=== PATIENT | female | born 1945 | race Caucasian/White ===

== ENCOUNTER 2018-12-15 15:00 | Inpatient (IN) | payer MEDICARE ==
[2018-12-15] MEDS ORDERED: Pancrelipase DR 12000 1 CAP FS PRN (17:10)
[2018-12-15] MEDS ORDERED: Acetaminophen 325 MG TAB PER TUBE PRN (17:10)
[2018-12-15] MEDS ORDERED: Ondansetron ODT 4 MG TAB SL PRN (17:10)
[2018-12-15] MEDS ORDERED: Sodium Bicarbonate Tab 325 MG TAB PER TUBE PRN (17:10)
[2018-12-15] MEDS ORDERED: Megestrol Acetate 40 MG TAB PER TUBE SCH (21:00)
[2018-12-15] MEDS ORDERED: Mirtazapine 15 MG TAB PER TUBE SCH (21:00)
[2018-12-15] MEDS: Doxepin HCl 25 MG CAP PO SCH (21:02)
[2018-12-15] MEDS: Magnesium Oxide 400 MG TAB PO SCH (21:03)
[2018-12-15] MEDS: Megestrol Acetate 40 MG TAB PO SCH (21:03)
[2018-12-15] MEDS: guaiFENesin ER 600 MG TAB PO SCH (21:03)
[2018-12-15] MEDS: Multivitamin W/ Minerals 1 TAB PO SCH (21:04)
[2018-12-15] MEDS: Mirtazapine 15 MG TAB PO SCH (21:04)
--- NOTE | 2018-12-16 07:46 | HP ---
PRIMARY CARE PHYSICIAN: Dr. Chino at [facility]. GASTROENTEROLOGY: Dr. Greg Vaughan. ONCOLOGY: Loreta Fontaine. REASON FOR ADMISSION: [facility] Bed for skilled rehab. HISTORY OF THE PRESENT ILLNESS AND HOSPITAL COURSE: Ms. Pimentel was admitted to [facility] secondary to dysphagia on 12/07/2018. Associated symptoms include nausea, vomiting, failure to thrive. Initial evaluation showed white count of 2.6, hemoglobin of 11.4, and platelet of 190,000. BUN 16, creatinine 1.2. GFR 43, albumin 3.8. Prior to this admission, the patient just had an EGD at [facility] 2 weeks prior and had a Schatzki ring on EGD. The patient was seen by Dr. Vaughan for gastroenterology care. This time, an EGD was performed with an esophageal dilatation and the patient underwent percutaneous gastrostomy placement. She also had a barium swallow study for dysphagia. No aspiration nor penetration was seen, but the patient has soft tissue neck enhancing lesion on the right parotid gland that will need to be followed by ENT as an outpatient. The patient was also seen by Loreta Fontaine for oncology care. The patient was started on Jevity infusion since yesterday. The patient reports that she is also allowed to have regular diet per mouth as tolerated. The patient reports that she remains generally weak and can hardly walk. Her baseline functional status is that she was independent prior to this admission. She lives on her own and her daughter who lives nearby is actively involved in patient's care. When evaluated, the patient was resting comfortably in bed. She reports some generalized discomfort of the abdomen. She reports no nausea or vomiting prior to discharge. No other new issues reported. PAST MEDICAL HISTORY: Uncontrolled chronic GERD, Schatzki's ring seen on recent EGD studies in 11/2018, hyperlipidemia, iron deficiency anemia, depression. SURGICAL HISTORY: Appendectomy, hysterectomy. ALLERGIES: SULFA AND METOPROLOL. CURRENT MEDICATIONS: 1. Acetaminophen 650 mg per tube q.6 hours p.r.n. 2. Ascorbic acid 500 mg p.o. daily. 3. Dulcolax 10 mg p.o. daily p.r.n. 4. Cholecalciferol 1000 units p.o. daily. 5. Vitamin D 1000 mg p.o. daily. 6. Doxepin 25 mg p.o. at bedtime. 7. Ferrous gluconate 324 mg p.o. daily. 8. Fluoxetine 20 mg p.o. daily. 9. Magnesium oxide 400 mg p.o. b.i.d. 10. Megestrol acetate 400 mg per tube q.i.d. 11. Mirtazapine 15 mg per tube at bedtime. 12. Multivitamins with minerals one tablet p.o. b.i.d. 13. Ondansetron 4 mg per tube q.6 hours p.r.n. 14. Pancrelipase 1 cap per protocol p.r.n. for tube occlusion. 15. Pantoprazole 40 mg p.o. daily. 16. Sodium bicarbonate 650 mg p.o. daily. REVIEW OF SYSTEMS: GENERAL: Denies fever or chills. Reports fatigue and general weakness, loss of appetite, and weight loss. HEENT: Denies cold symptoms. She reports some blurred vision. No acute eye pain or sudden loss of vision. CARDIO: Denies chest pain, palpitations, dyspnea on exertion, paroxysmal nocturnal dyspnea, or leg swelling. RESPIRATORY: Denies shortness of breath, cough, chronic sputum, pain with breathing. GI: As per HPI. Denies rectal bleeding, melena, hematochezia, hematemesis. GENITOURINARY: No dysuria, hematuria, frequency, urgency, or incontinence. MUSCULOSKELETAL: Denies joint effusion, myalgia, arthralgia. NEURO: Denies focal numbness, focal paralysis, fainting, or seizures. PSYCH: Reports some anxiety, depression, and insomnia. No hallucinations. SKIN: No rashes. No lesions. Reports bruises from previous IV sites. PHYSICAL EXAMINATION: VITAL SIGNS: Blood pressure 118/56, temperature 99.3, pulse 94, respirations 20 , O2 sats 97% on room air. Weight 117 pounds and 9 ounces, height 5 feet 2 inches. GENERAL: The patient is awake, alert, and oriented x3. Comfortable on exam. Generally weak looking, frail looking, elderly, not in acute distress. HEENT: Normocephalic, atraumatic. PERRL. Intact EOM. Anicteric sclerae. Oral mucosa is moist. No oral lesions. NECK: Supple. No LAD. Flat JVD. No bruit. CHEST: Normal excursion. Clear to auscultation bilaterally. CARDIAC: RRR. Normal S1 and S2. No murmurs. ABDOMEN: Flat, soft, nondistended. Normoactive bowel sounds. PEG tube site in place. Dry. No signs of infection. Reports generalized direct tenderness on palpation. No rebound or guarding. Negative CVA tenderness bilaterally. EXTREMITIES: No edema. No cyanosis. NEUROLOGIC: Nonfocal. DTRs 2+. Gait unsteady. PSYCH: Appears calm with appropriate demeanor and affect. She is calm and she is cooperative. LATEST LABS/TESTS: On 12/15/2018; WBC 4.2, hemoglobin 8, hematocrit 24.1, platelets 122. Sodium 131, potassium 3.8, BUN 15, creatinine 0.66, estimated GFR 87, glucose 117, calcium 8.0, lactate dehydrogenase 200. ASSESSMENT: 1. Physical deconditioning. 2. General weakness. 3. Adult failure to thrive. 4. Dysphagia, status post PEG tube placement. 5. Chronic kidney disease, stage 3. 6. Abnormal weight loss secondary to nutritional deficiency. 7. Folate deficiency. 8. Hyponatremia. 9. Gastroesophageal reflux, chronic. 10. Anemia. 11. Depression and anxiety. 12. Schatzki's ring, s/p esophageal dilatation. 12. 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 PLAN: The patient is admitted to [facility] for skilled rehab. We will refer to PT, OT, and ST for evaluation and treatment. We will continue all current medications as per list. Routine electrolytes, renal function, and CBC monitoring during her stay on rehab. We will monitor the patient for any medical comorbidities that may interfere with rehab progress. GI prophylaxis with PPI, DVT prophylaxis with SCD. Further recommendations depending on the hospital course. CODE STATUS: The patient reports DNAR. States that she has a living will at home and her daughter knows about the DNR status. Estimated length of stay, 2 to 3 weeks. Job ID: [id number] [facility]
[2018-12-16] MEDS: guaiFENesin ER 600 MG TAB PO SCH ×2 (09:05→21:16)
[2018-12-16] MEDS: Megestrol Acetate 40 MG TAB PO SCH ×4 (09:05→21:16)
[2018-12-16] MEDS: Multivitamin W/ Minerals 1 TAB PO SCH ×2 (09:06→21:16)
[2018-12-16] MEDS: Ferrous Gluconate 324 MG TAB PO SCH (09:06)
[2018-12-16] MEDS: Cyanocobalamin (Vitamin B-12) 1,000 MCG TAB PO SCH (09:06)
[2018-12-16] MEDS: Acetaminophen 325 MG TAB PO PRN (09:06)
[2018-12-16] MEDS: Ascorbic Acid 500 mg Chewable Tablet PO SCH (09:06)
[2018-12-16] MEDS: FLUoxetine HCl 20 MG CAP PO SCH (09:06)
[2018-12-16] MEDS: Magnesium Oxide 400 MG TAB PO SCH ×2 (09:06→21:17)
[2018-12-16] MEDS: Mirtazapine 15 MG TAB PO SCH (21:16)
[2018-12-16] MEDS: Doxepin HCl 25 MG CAP PO SCH (21:16)
[2018-12-17] MEDS: Multivitamin W/ Minerals 1 TAB PO SCH ×2 (08:59→21:43)
[2018-12-17] MEDS: Ascorbic Acid 500 mg Chewable Tablet PO SCH (08:59)
[2018-12-17] MEDS: Cyanocobalamin (Vitamin B-12) 1,000 MCG TAB PO SCH (08:59)
[2018-12-17] MEDS: FLUoxetine HCl 20 MG CAP PO SCH (08:59)
[2018-12-17] MEDS: guaiFENesin ER 600 MG TAB PO SCH ×2 (09:00→21:42)
[2018-12-17] MEDS: Megestrol Acetate 40 MG TAB PO SCH ×4 (09:00→21:42)
[2018-12-17] MEDS: Ferrous Gluconate 324 MG TAB PO SCH (09:00)
[2018-12-17] MEDS: Magnesium Oxide 400 MG TAB PO SCH ×2 (09:00→21:42)
[2018-12-17] MEDS: Doxepin HCl 25 MG CAP PO SCH (21:42)
[2018-12-17] MEDS: Mirtazapine 15 MG TAB PO SCH (21:43)
[2018-12-18 05:58] LABS: Hemoglobin 7.5 g/dL (12.0-16.0); Mean Corpuscular HGB CONC 31.6 g/dL (32.0-36.0); Mean Corpuscular Hemoglobin 28.2 pg (27.0-31.0); Mean Corpuscular Volume 89.1 fL (78.0-98.0); Mean Platelet Volume 6.4 fL (7.4-10.4); Platelet Count 198 thou/uL (130-400); RBC Distribution Width 15.2 % (11.5-14.5); Red Blood Cell (RBC) Count 2.67 mill/uL (4.20-5.40)
[2018-12-18 06:42] LABS: Anion Gap 13 mmol/L (10-20); BUN (Urea Nitrogen) 12 mg/dL (9.8-20.1); Band 8 % (5-11); Calc. Creatinine Clearance 59 mL/min (70-130); Calcium 8.4 mg/dL (7.8-10.44); Carbon Dioxide 22 mmol/L (23-31); Chloride 106 mmol/L (98-107); Estimated GFR-MDRD 83; Glucose 170 mg/dL (83-110); Lymphocytes 46 % (21-51); MDiff Complete? YES; Monocytes 14 % (0-10); Neutrophil 32 % (42-75); Platelet Morphology Comment Appears Adequate; RBC Morphology Normal; Sodium 137 mmol/L (136-145)
[2018-12-18 06:43] LABS: Manual Diff?? YES
[2018-12-18] MEDS: Megestrol Acetate 40 MG TAB PO SCH ×4 (09:07→20:33)
[2018-12-18] MEDS: guaiFENesin ER 600 MG TAB PO SCH ×2 (09:07→20:33)
[2018-12-18] MEDS: FLUoxetine HCl 20 MG CAP PO SCH (09:07)
[2018-12-18] MEDS: Magnesium Oxide 400 MG TAB PO SCH ×2 (09:07→20:33)
[2018-12-18] MEDS: Multivitamin W/ Minerals 1 TAB PO SCH ×2 (09:07→20:33)
[2018-12-18] MEDS: Ferrous Gluconate 324 MG TAB PO SCH ×2 (09:07→20:33)
[2018-12-18] MEDS: Ascorbic Acid 500 mg Chewable Tablet PO SCH (09:07)
[2018-12-18] MEDS: Cyanocobalamin (Vitamin B-12) 1,000 MCG TAB PO SCH (09:07)
[2018-12-18] MEDS: Doxepin HCl 25 MG CAP PO SCH (20:33)
[2018-12-18] MEDS: Mirtazapine 15 MG TAB PO SCH (20:33)
[2018-12-19 07:04] LABS: Hemoglobin 7.5 g/dL (12.0-16.0)
[2018-12-19] MEDS: Ascorbic Acid 500 mg Chewable Tablet PO SCH (09:12)
[2018-12-19] MEDS: FLUoxetine HCl 20 MG CAP PO SCH (09:12)
[2018-12-19] MEDS: Multivitamin W/ Minerals 1 TAB PO SCH ×2 (09:12→20:37)
[2018-12-19] MEDS: Magnesium Oxide 400 MG TAB PO SCH ×2 (09:13→20:38)
[2018-12-19] MEDS: Ferrous Gluconate 324 MG TAB PO SCH ×2 (09:13→20:38)
[2018-12-19] MEDS: Cyanocobalamin (Vitamin B-12) 1,000 MCG TAB PO SCH (09:13)
[2018-12-19] MEDS: Megestrol Acetate 40 MG TAB PO SCH ×4 (09:13→20:37)
[2018-12-19] MEDS: guaiFENesin ER 600 MG TAB PO SCH ×2 (09:13→20:37)
[2018-12-19] MEDS: Mirtazapine 15 MG TAB PO SCH (20:37)
[2018-12-19] MEDS: Doxepin HCl 25 MG CAP PO SCH (20:37)
[2018-12-20 06:47] LABS: Hemoglobin 7.7 g/dL (12.0-16.0)
[2018-12-20] MEDS: Multivitamin W/ Minerals 1 TAB PO SCH ×2 (09:26→20:27)
[2018-12-20] MEDS: Acetaminophen 325 MG TAB PO PRN (09:26)
[2018-12-20] MEDS: Ferrous Gluconate 324 MG TAB PO SCH ×2 (09:26→20:27)
[2018-12-20] MEDS: guaiFENesin ER 600 MG TAB PO SCH ×2 (09:26→20:28)
[2018-12-20] MEDS: Cyanocobalamin (Vitamin B-12) 1,000 MCG TAB PO SCH (09:26)
[2018-12-20] MEDS: Megestrol Acetate 40 MG TAB PO SCH ×4 (09:27→20:27)
[2018-12-20] MEDS: FLUoxetine HCl 20 MG CAP PO SCH (09:27)
[2018-12-20] MEDS: Ascorbic Acid 500 mg Chewable Tablet PO SCH (09:27)
[2018-12-20] MEDS: Magnesium Oxide 400 MG TAB PO SCH ×2 (09:27→20:28)
[2018-12-20] MEDS: Doxepin HCl 25 MG CAP PO SCH (20:28)
[2018-12-20] MEDS: Mirtazapine 15 MG TAB PO SCH (20:28)
[2018-12-21] MEDS: Cyanocobalamin (Vitamin B-12) 1,000 MCG TAB PO SCH (09:34)
[2018-12-21] MEDS: Ferrous Gluconate 324 MG TAB PO SCH ×2 (09:34→20:34)
[2018-12-21] MEDS: Acetaminophen 325 MG TAB PO PRN ×2 (09:34→19:12)
[2018-12-21] MEDS: Multivitamin W/ Minerals 1 TAB PO SCH ×2 (09:34→20:34)
[2018-12-21] MEDS: Ascorbic Acid 500 mg Chewable Tablet PO SCH (09:34)
[2018-12-21] MEDS: guaiFENesin ER 600 MG TAB PO SCH ×2 (09:34→20:34)
[2018-12-21] MEDS: Megestrol Acetate 40 MG TAB PO SCH ×4 (09:34→20:34)
[2018-12-21] MEDS: FLUoxetine HCl 20 MG CAP PO SCH (09:34)
[2018-12-21] MEDS: Magnesium Oxide 400 MG TAB PO SCH ×2 (09:34→20:34)
[2018-12-21] MEDS: Mirtazapine 15 MG TAB PO SCH (20:34)
[2018-12-21] MEDS: Doxepin HCl 25 MG CAP PO SCH (20:34)
[2018-12-22] MEDS: FLUoxetine HCl 20 MG CAP PO SCH (09:39)
[2018-12-22] MEDS: guaiFENesin ER 600 MG TAB PO SCH ×2 (09:40→22:55)
[2018-12-22] MEDS: Ascorbic Acid 500 mg Chewable Tablet PO SCH (09:40)
[2018-12-22] MEDS: Multivitamin W/ Minerals 1 TAB PO SCH ×2 (09:40→22:54)
[2018-12-22] MEDS: Megestrol Acetate 40 MG TAB PO SCH ×4 (09:40→22:54)
[2018-12-22] MEDS: Cyanocobalamin (Vitamin B-12) 1,000 MCG TAB PO SCH (09:40)
[2018-12-22] MEDS: Ferrous Gluconate 324 MG TAB PO SCH ×2 (09:40→22:54)
[2018-12-22] MEDS: Magnesium Oxide 400 MG TAB PO SCH ×2 (09:40→22:54)
[2018-12-22] MEDS: Acetaminophen 325 MG TAB PO PRN (10:23)
[2018-12-22] MEDS: Bisacodyl 5 MG TAB PO PRN (14:45)
[2018-12-22] MEDS: Doxepin HCl 25 MG CAP PO SCH (22:54)
[2018-12-22] MEDS: Mirtazapine 15 MG TAB PO SCH (22:55)
[2018-12-23] MEDS: Multivitamin W/ Minerals 1 TAB PO SCH ×2 (08:26→21:29)
[2018-12-23] MEDS: Ferrous Gluconate 324 MG TAB PO SCH ×2 (08:26→21:30)
[2018-12-23] MEDS: Magnesium Oxide 400 MG TAB PO SCH ×2 (08:26→21:29)
[2018-12-23] MEDS: Ascorbic Acid 500 mg Chewable Tablet PO SCH (08:26)
[2018-12-23] MEDS: FLUoxetine HCl 20 MG CAP PO SCH (08:26)
[2018-12-23] MEDS: Megestrol Acetate 40 MG TAB PO SCH ×4 (08:26→21:30)
[2018-12-23] MEDS: Cyanocobalamin (Vitamin B-12) 1,000 MCG TAB PO SCH (08:26)
[2018-12-23] MEDS: guaiFENesin ER 600 MG TAB PO SCH ×2 (08:26→21:29)
[2018-12-23] MEDS: Doxepin HCl 25 MG CAP PO SCH (21:28)
[2018-12-23] MEDS: Mirtazapine 15 MG TAB PO SCH (21:30)
[2018-12-24] MEDS: Ferrous Gluconate 324 MG TAB PO SCH ×2 (09:50→20:12)
[2018-12-24] MEDS: Ascorbic Acid 500 mg Chewable Tablet PO SCH (09:50)
[2018-12-24] MEDS: guaiFENesin ER 600 MG TAB PO SCH ×2 (09:50→20:13)
[2018-12-24] MEDS: FLUoxetine HCl 20 MG CAP PO SCH (09:50)
[2018-12-24] MEDS: Magnesium Oxide 400 MG TAB PO SCH ×2 (09:50→20:12)
[2018-12-24] MEDS: Megestrol Acetate 40 MG TAB PO SCH ×4 (09:50→20:12)
[2018-12-24] MEDS: Multivitamin W/ Minerals 1 TAB PO SCH ×2 (09:51→20:12)
[2018-12-24] MEDS: Cyanocobalamin (Vitamin B-12) 1,000 MCG TAB PO SCH (09:51)
[2018-12-24] MEDS: Acetaminophen 325 MG TAB PO PRN ×2 (09:54→18:04)
[2018-12-24] MEDS: Mirtazapine 15 MG TAB PO SCH (20:13)
[2018-12-24] MEDS: Doxepin HCl 25 MG CAP PO SCH (20:13)
[2018-12-25 07:38] LABS: Hemoglobin 7.5 g/dL (12.0-16.0); Platelet Count 386 thou/uL (130-400)
[2018-12-25] MEDS: Ferrous Gluconate 324 MG TAB PO SCH ×2 (08:40→20:16)
[2018-12-25] MEDS: Ascorbic Acid 500 mg Chewable Tablet PO SCH (08:40)
[2018-12-25] MEDS: Multivitamin W/ Minerals 1 TAB PO SCH ×2 (08:40→20:16)
[2018-12-25] MEDS: FLUoxetine HCl 20 MG CAP PO SCH (08:40)
[2018-12-25] MEDS: Magnesium Oxide 400 MG TAB PO SCH ×2 (08:41→20:16)
[2018-12-25] MEDS: guaiFENesin ER 600 MG TAB PO SCH ×2 (08:41→20:17)
[2018-12-25] MEDS: Megestrol Acetate 40 MG TAB PO SCH ×4 (08:41→20:16)
[2018-12-25] MEDS: Cyanocobalamin (Vitamin B-12) 1,000 MCG TAB PO SCH (08:41)
[2018-12-25] MEDS: Mirtazapine 15 MG TAB PO SCH (20:16)
[2018-12-25] MEDS: Doxepin HCl 25 MG CAP PO SCH (20:16)
[2018-12-26] MEDS: Multivitamin W/ Minerals 1 TAB PO SCH ×2 (09:09→21:24)
[2018-12-26] MEDS: Ascorbic Acid 500 mg Chewable Tablet PO SCH (09:10)
[2018-12-26] MEDS: Cyanocobalamin (Vitamin B-12) 1,000 MCG TAB PO SCH (09:10)
[2018-12-26] MEDS: Megestrol Acetate 40 MG TAB PO SCH ×4 (09:10→21:24)
[2018-12-26] MEDS: Ferrous Gluconate 324 MG TAB PO SCH ×2 (09:10→21:24)
[2018-12-26] MEDS: FLUoxetine HCl 20 MG CAP PO SCH (09:10)
[2018-12-26] MEDS: guaiFENesin ER 600 MG TAB PO SCH ×2 (09:11→21:24)
[2018-12-26] MEDS: Magnesium Oxide 400 MG TAB PO SCH ×2 (09:11→21:24)
[2018-12-26] MEDS: Bisacodyl 5 MG TAB PO PRN (09:22)
[2018-12-26] MEDS: Acetaminophen 325 MG TAB PO PRN (10:48)
[2018-12-26] MEDS: Doxepin HCl 25 MG CAP PO SCH (21:23)
[2018-12-26] MEDS: Mirtazapine 15 MG TAB PO SCH (21:24)
[2018-12-27] MEDS: Multivitamin W/ Minerals 1 TAB PO SCH ×2 (08:28→21:33)
[2018-12-27] MEDS: Megestrol Acetate 40 MG TAB PO SCH ×4 (08:28→21:33)
[2018-12-27] MEDS: Magnesium Oxide 400 MG TAB PO SCH ×2 (08:29→21:33)
[2018-12-27] MEDS: Ascorbic Acid 500 mg Chewable Tablet PO SCH (08:29)
[2018-12-27] MEDS: guaiFENesin ER 600 MG TAB PO SCH ×2 (08:29→21:33)
[2018-12-27] MEDS: FLUoxetine HCl 20 MG CAP PO SCH (08:29)
[2018-12-27] MEDS: Cyanocobalamin (Vitamin B-12) 1,000 MCG TAB PO SCH (08:29)
[2018-12-27] MEDS: Ferrous Gluconate 324 MG TAB PO SCH ×2 (08:29→21:33)
[2018-12-27] MEDS: Acetaminophen 325 MG TAB PO PRN (16:45)
[2018-12-27] MEDS: Doxepin HCl 25 MG CAP PO SCH (21:33)
[2018-12-27] MEDS: Mirtazapine 15 MG TAB PO SCH (21:37)
[2018-12-28] MEDS: Ferrous Gluconate 324 MG TAB PO SCH ×2 (08:32→20:39)
[2018-12-28] MEDS: Multivitamin W/ Minerals 1 TAB PO SCH ×2 (08:32→20:40)
[2018-12-28] MEDS: Magnesium Oxide 400 MG TAB PO SCH ×2 (08:32→20:40)
[2018-12-28] MEDS: Cyanocobalamin (Vitamin B-12) 1,000 MCG TAB PO SCH (08:32)
[2018-12-28] MEDS: guaiFENesin ER 600 MG TAB PO SCH ×2 (08:32→20:40)
[2018-12-28] MEDS: Ascorbic Acid 500 mg Chewable Tablet PO SCH (08:32)
[2018-12-28] MEDS: Megestrol Acetate 40 MG TAB PO SCH ×4 (08:33→20:39)
[2018-12-28] MEDS: FLUoxetine HCl 20 MG CAP PO SCH (08:33)
[2018-12-28] MEDS: Mirtazapine 15 MG TAB PO SCH (20:40)
[2018-12-28] MEDS: Doxepin HCl 25 MG CAP PO SCH (20:40)
[2018-12-29] MEDS: Multivitamin W/ Minerals 1 TAB PO SCH ×2 (08:22→21:16)
[2018-12-29] MEDS: Ascorbic Acid 500 mg Chewable Tablet PO SCH (08:22)
[2018-12-29] MEDS: Megestrol Acetate 40 MG TAB PO SCH ×4 (08:22→21:16)
[2018-12-29] MEDS: Ferrous Gluconate 324 MG TAB PO SCH ×2 (08:22→21:16)
[2018-12-29] MEDS: FLUoxetine HCl 20 MG CAP PO SCH (08:22)
[2018-12-29] MEDS: guaiFENesin ER 600 MG TAB PO SCH ×2 (08:23→21:17)
[2018-12-29] MEDS: Magnesium Oxide 400 MG TAB PO SCH ×2 (08:23→21:17)
[2018-12-29] MEDS: Cyanocobalamin (Vitamin B-12) 1,000 MCG TAB PO SCH (08:23)
[2018-12-29] MEDS: Bisacodyl 5 MG TAB PO PRN (08:23)
[2018-12-29] MEDS: Doxepin HCl 25 MG CAP PO SCH (21:16)
[2018-12-29] MEDS: Mirtazapine 15 MG TAB PO SCH (21:16)
[2018-12-29] MEDS ORDERED: Bisacodyl 10 MG SUPP PR PRN (22:59)
[2018-12-29] MEDS ORDERED: Fleet Enema 133 ML BOT FS PRN (22:59)
[2018-12-30] MEDS: Ascorbic Acid 500 mg Chewable Tablet PO SCH (08:52)
[2018-12-30] MEDS: FLUoxetine HCl 20 MG CAP PO SCH (08:54)
[2018-12-30] MEDS: guaiFENesin ER 600 MG TAB PO SCH (08:54)
[2018-12-30] MEDS: Magnesium Oxide 400 MG TAB PO SCH ×2 (08:54→21:03)
[2018-12-30] MEDS: Ferrous Gluconate 324 MG TAB PO SCH ×2 (08:54→21:03)
[2018-12-30] MEDS: Cyanocobalamin (Vitamin B-12) 1,000 MCG TAB PO SCH (08:54)
[2018-12-30] MEDS: Multivitamin W/ Minerals 1 TAB PO SCH ×2 (08:55→21:03)
[2018-12-30] MEDS: Megestrol Acetate 40 MG TAB PO SCH ×4 (08:55→21:03)
[2018-12-30] MEDS: Acetaminophen 325 MG TAB PO PRN ×2 (11:21→21:02)
[2018-12-30] MEDS ORDERED: Polyethylene Glycol 3350 17 GM Packet PER TUBE SCH (21:00)
[2018-12-30] MEDS: Mirtazapine 15 MG TAB PO SCH (21:02)
[2018-12-30] MEDS: Doxepin HCl 25 MG CAP PO SCH (21:02)
[2018-12-31] MEDS: Cyanocobalamin (Vitamin B-12) 1,000 MCG TAB PO SCH (09:04)
[2018-12-31] MEDS: Magnesium Oxide 400 MG TAB PO SCH ×2 (09:04→20:07)
[2018-12-31] MEDS: Megestrol Acetate 40 MG TAB PO SCH ×4 (09:04→20:07)
[2018-12-31] MEDS: Ferrous Gluconate 324 MG TAB PO SCH ×2 (09:04→20:07)
[2018-12-31] MEDS: FLUoxetine HCl 20 MG CAP PO SCH (09:04)
[2018-12-31] MEDS: Ascorbic Acid 500 mg Chewable Tablet PO SCH (09:04)
[2018-12-31] MEDS: Multivitamin W/ Minerals 1 TAB PO SCH ×2 (09:04→20:07)
[2018-12-31 13:44] VITALS: BMI 23.7
[2018-12-31] MEDS: Doxepin HCl 25 MG CAP PO SCH (20:07)
[2018-12-31] MEDS: Polyethylene Glycol 3350 17 GM Packet PO SCH (20:07)
[2018-12-31] MEDS: Mirtazapine 15 MG TAB PO SCH (20:07)
[2019-01-01 05:40] LABS: #Basophils 0.1 thou/uL (0.0-0.2); #Eosinphils 0.3 thou/uL (0.0-0.7); #Lymphocytes 1.9 thou/uL (1.20-3.40); #Monocytes 0.8 thou/uL (0.11-0.59); %Basophils 1.3 % (0.0-1.0); %Eosinophils 5.1 % (0.0-10.0); %Lymphocytes 31.1 % (21.0-51.0); %Neutrophils 49.6 % (42.0-75.0); Hemoglobin 8.2 g/dL (12.0-16.0); Mean Corpuscular Hemoglobin 30.1 pg (27.0-31.0); Mean Corpuscular Volume 91.3 fL (78.0-98.0); Mean Platelet Volume 6.1 fL (7.4-10.4); Platelet Count 330 thou/uL (130-400); RBC Distribution Width 18.7 % (11.5-14.5); Red Blood Cell (RBC) Count 2.71 mill/uL (4.20-5.40); White Blood Cell (WBC) Count 6.1 thou/uL (4.8-10.8)
[2019-01-01 05:54] LABS: Anisocytosis SLIGHT = 6-15 cells (100X) (0-5/hpf); Eosinophils 3 % (0-10); Lymphocytes 41 % (21-51); MDiff Complete? YES; Monocytes 14 % (0-10); Neutrophil 42 % (42-75); Platelet Morphology Comment Appears Adequate
[2019-01-01] MEDS: Megestrol Acetate 40 MG TAB PO SCH ×4 (07:56→19:59)
[2019-01-01] MEDS: Magnesium Oxide 400 MG TAB PO SCH ×2 (07:56→19:59)
[2019-01-01] MEDS: FLUoxetine HCl 20 MG CAP PO SCH (07:56)
[2019-01-01] MEDS: Cyanocobalamin (Vitamin B-12) 1,000 MCG TAB PO SCH (07:56)
[2019-01-01] MEDS: Multivitamin W/ Minerals 1 TAB PO SCH ×2 (07:56→19:59)
[2019-01-01] MEDS: Ferrous Gluconate 324 MG TAB PO SCH ×2 (07:57→19:59)
[2019-01-01] MEDS: Ascorbic Acid 500 mg Chewable Tablet PO SCH (07:57)
[2019-01-01] MEDS: Proctozone-HC 2.5% Cream 30 GM TUBE TOP PRN (08:05)
[2019-01-01] MEDS: Doxepin HCl 25 MG CAP PO SCH (19:59)
[2019-01-01] MEDS: Polyethylene Glycol 3350 17 GM Packet PO SCH (19:59)
[2019-01-01] MEDS: Mirtazapine 15 MG TAB PO SCH (19:59)
[2019-01-02] MEDS: Megestrol Acetate 40 MG TAB PO SCH ×4 (08:54→19:59)
[2019-01-02] MEDS: Ferrous Gluconate 324 MG TAB PO SCH ×2 (08:54→19:59)
[2019-01-02] MEDS: Multivitamin W/ Minerals 1 TAB PO SCH ×2 (08:55→19:59)
[2019-01-02] MEDS: Cyanocobalamin (Vitamin B-12) 1,000 MCG TAB PO SCH (08:55)
[2019-01-02] MEDS: Ascorbic Acid 500 mg Chewable Tablet PO SCH (08:55)
[2019-01-02] MEDS: Magnesium Oxide 400 MG TAB PO SCH ×2 (08:55→19:59)
[2019-01-02] MEDS: FLUoxetine HCl 20 MG CAP PO SCH (08:55)
[2019-01-02] MEDS: Proctozone-HC 2.5% Cream 30 GM TUBE TOP PRN (19:54)
[2019-01-02] MEDS: Polyethylene Glycol 3350 17 GM Packet PO SCH (19:59)
[2019-01-02] MEDS: Doxepin HCl 25 MG CAP PO SCH (19:59)
[2019-01-02] MEDS: Mirtazapine 15 MG TAB PO SCH (19:59)
[2019-01-03] MEDS: Ascorbic Acid 500 mg Chewable Tablet PO SCH (08:45)
[2019-01-03] MEDS: FLUoxetine HCl 20 MG CAP PO SCH (08:45)
[2019-01-03] MEDS: Multivitamin W/ Minerals 1 TAB PO SCH ×2 (08:45→21:10)
[2019-01-03] MEDS: Megestrol Acetate 40 MG TAB PO SCH ×4 (08:46→21:10)
[2019-01-03] MEDS: Ferrous Gluconate 324 MG TAB PO SCH ×2 (08:46→21:09)
[2019-01-03] MEDS: Magnesium Oxide 400 MG TAB PO SCH ×2 (08:46→21:10)
[2019-01-03] MEDS: Cyanocobalamin (Vitamin B-12) 1,000 MCG TAB PO SCH (08:46)
[2019-01-03] MEDS: Doxepin HCl 25 MG CAP PO SCH (21:09)
[2019-01-03] MEDS: Polyethylene Glycol 3350 17 GM Packet PO SCH (21:10)
[2019-01-03] MEDS: Mirtazapine 15 MG TAB PO SCH (21:10)
[2019-01-04] MEDS: FLUoxetine HCl 20 MG CAP PO SCH (08:54)
[2019-01-04] MEDS: Cyanocobalamin (Vitamin B-12) 1,000 MCG TAB PO SCH (08:54)
[2019-01-04] MEDS: Multivitamin W/ Minerals 1 TAB PO SCH ×2 (08:54→21:09)
[2019-01-04] MEDS: Ferrous Gluconate 324 MG TAB PO SCH ×2 (08:54→21:09)
[2019-01-04] MEDS: Magnesium Oxide 400 MG TAB PO SCH ×2 (08:54→21:10)
[2019-01-04] MEDS: Ascorbic Acid 500 mg Chewable Tablet PO SCH (08:54)
[2019-01-04] MEDS: Megestrol Acetate 40 MG TAB PO SCH ×4 (08:54→21:10)
[2019-01-04] MEDS: Doxepin HCl 25 MG CAP PO SCH (21:09)
[2019-01-04] MEDS: Mirtazapine 15 MG TAB PO SCH (21:10)
[2019-01-04] MEDS: Polyethylene Glycol 3350 17 GM Packet PO SCH (21:11)
[2019-01-05] MEDS: Ascorbic Acid 500 mg Chewable Tablet PO SCH (09:57)
[2019-01-05] MEDS: Ferrous Gluconate 324 MG TAB PO SCH ×2 (09:57→20:49)
[2019-01-05] MEDS: Magnesium Oxide 400 MG TAB PO SCH ×2 (09:57→20:50)
[2019-01-05] MEDS: FLUoxetine HCl 20 MG CAP PO SCH (09:57)
[2019-01-05] MEDS: Multivitamin W/ Minerals 1 TAB PO SCH ×2 (09:57→20:49)
[2019-01-05] MEDS: Megestrol Acetate 40 MG TAB PO SCH ×4 (09:58→20:49)
[2019-01-05] MEDS: Cyanocobalamin (Vitamin B-12) 1,000 MCG TAB PO SCH (09:58)
[2019-01-05] MEDS: Doxepin HCl 25 MG CAP PO SCH (20:49)
[2019-01-05] MEDS: Polyethylene Glycol 3350 17 GM Packet PO SCH (20:50)
[2019-01-05] MEDS: Mirtazapine 15 MG TAB PO SCH (20:50)
[2019-01-06] MEDS: Ferrous Gluconate 324 MG TAB PO SCH ×2 (08:36→20:02)
[2019-01-06] MEDS: Magnesium Oxide 400 MG TAB PO SCH ×2 (08:37→20:02)
[2019-01-06] MEDS: Megestrol Acetate 40 MG TAB PO SCH ×4 (08:37→20:03)
[2019-01-06] MEDS: Ascorbic Acid 500 mg Chewable Tablet PO SCH (08:37)
[2019-01-06] MEDS: Multivitamin W/ Minerals 1 TAB PO SCH ×2 (08:37→20:02)
[2019-01-06] MEDS: Cyanocobalamin (Vitamin B-12) 1,000 MCG TAB PO SCH (08:37)
[2019-01-06] MEDS: FLUoxetine HCl 20 MG CAP PO SCH (08:37)
[2019-01-06] MEDS: Mirtazapine 15 MG TAB PO SCH (20:02)
[2019-01-06] MEDS: Polyethylene Glycol 3350 17 GM Packet PO SCH (20:02)
[2019-01-06] MEDS: Doxepin HCl 25 MG CAP PO SCH (20:02)
[2019-01-07] MEDS: FLUoxetine HCl 20 MG CAP PO SCH (08:23)
[2019-01-07] MEDS: Cyanocobalamin (Vitamin B-12) 1,000 MCG TAB PO SCH (08:24)
[2019-01-07] MEDS: Magnesium Oxide 400 MG TAB PO SCH ×2 (08:24→20:18)
[2019-01-07] MEDS: Ferrous Gluconate 324 MG TAB PO SCH ×2 (08:24→20:18)
[2019-01-07] MEDS: Ascorbic Acid 500 mg Chewable Tablet PO SCH (08:24)
[2019-01-07] MEDS: Megestrol Acetate 40 MG TAB PO SCH ×4 (08:24→20:18)
[2019-01-07] MEDS: Multivitamin W/ Minerals 1 TAB PO SCH ×2 (08:24→20:18)
[2019-01-07] MEDS: Acetaminophen 325 MG TAB PO PRN (15:53)
[2019-01-07] MEDS: Polyethylene Glycol 3350 17 GM Packet PO SCH (20:18)
[2019-01-07] MEDS: Doxepin HCl 25 MG CAP PO SCH (20:18)
[2019-01-07] MEDS: Mirtazapine 15 MG TAB PO SCH (20:18)
[2019-01-08 08:36] VITALS: BP 137/64; TEMP 99.4
[2019-01-08] MEDS: Magnesium Oxide 400 MG TAB PO SCH (08:40)
[2019-01-08] MEDS: Ascorbic Acid 500 mg Chewable Tablet PO SCH (08:40)
[2019-01-08] MEDS: Cyanocobalamin (Vitamin B-12) 1,000 MCG TAB PO SCH (08:40)
[2019-01-08] MEDS: Multivitamin W/ Minerals 1 TAB PO SCH (08:40)
[2019-01-08] MEDS: Ferrous Gluconate 324 MG TAB PO SCH (08:40)
[2019-01-08] MEDS: Megestrol Acetate 40 MG TAB PO SCH (08:40)
[2019-01-08] MEDS: FLUoxetine HCl 20 MG CAP PO SCH (08:40)
--- NOTE | 2019-01-10 02:00 | DIS ---
DATE OF ADMISSION: 12/15/2018 DATE OF DISCHARGE: 01/08/2019 PRIMARY CARE PHYSICIAN: Dr. Chino from [facility]. GASTROENTEROLOGY: Greg Vaughan MD ONCOLOGIST: Loreta Fontaine NP REASON FOR ADMISSION: Transferred to [facility] for skilled rehab after recent hospitalization. FINAL DIAGNOSES: 1. Physical deconditioning secondary to general weakness. 2. Adult failure to thrive. 3. Anemia, acute on chronic. 4. Dysphagia status post PEG tube placement. 5. Chronic kidney disease stage 3. 6. Abnormal weight loss secondary to nutritional deficiencies/malnutrition, improved. 7. Folate deficiency. 8. Hyponatremia. 9. Chronic gastroesophageal reflux. 10. Depression, anxiety. 11. Schatzki ring, status post esophageal dilatation. 12. 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 13. Abnormality of gait secondary to impairment of balance. DISPOSITION: Home with daughter. CONDITION ON DISCHARGE: Stable. DISCHARGE MEDICATIONS: 1. Ferrous sulfate 325 mg p.o. b.i.d. 2. Bisacodyl 10 mg p.o. daily p.r.n. 3. Doxepin 25 mg p.o. at bedtime. 4. Fluoxetine 20 mg p.o. daily. 5. Magnesium oxide 400 mg p.o. b.i.d. 6. Mirtazapine 15 mg p.o. at bedtime. 7. Omeprazole 40 mg p.o. daily. 8. Pancrelipase DR are 12,000 one cap daily. 9. Polyethylene glycol 17 g p.o. at bedtime. FOLLOWUP INSTRUCTIONS: 1. Follow up with PCP in 1 week, sooner with concern. 2. Follow up with GI Dr. Vaughan in 2-3 weeks. 3. Diet, regular as tolerated. 4. Activity, to use rolling walker at all times. 5. Fall precautions. CODE STATUS: Do not resuscitate. HISTORY OF PRESENT ILLNESS AND HOSPITAL COURSE: Ms. Pimentel is a very pleasant 73-year-old female, was initially admitted to [facility] secondary to dysphagia. She was admitted on 12/07/2018 with associated symptoms of nausea, vomiting, and failure to thrive. The patient reports that she has been having difficulty of swallowing and inability to eat. She had significantly lost weight in a gradual manner. Her baseline weight has been in the 160s prior to this. The patient underwent EGD and esophageal dilatation for Schatzki ring 2 weeks prior to this admission. The patient reports no significant improvement of her overall oral intake despite of the procedures. The patient then underwent percutaneous gastrostomy placement during this admission. She also had a barium swallow study of dysphagia. There was no aspiration or penetration that was seen, but the patient has a soft tissue neck enhancing lesion on the right parotid gland that will need to be followed by the ENT as an outpatient. The patient was also seen by Loreta Fontaine for oncology care during her recent hospitalization. She was then started on Jevity infusion post PEG tube placement. The patient was also allowed to have regular diet orally as tolerated per GI recommendations. The patient reports that she remains generally weak and could hardly walk thus she was transferred to [facility] on 12/15/2018 for skilled rehab. The patient made a marked improvement with her overall functional mobility and status during her rehab. She was walking 400 feet using her rolling walker prior to discharge. She remains low with her vick and she has a flexed posture. Per Therapy, the patient demonstrated safe and independent mobility, dressing, and transfers of gait prior to discharge. The patient was likewise made a significant improvement with her overall nutritional status and eating. Her appetite tremendously increased and she tolerated oral intake without issues. Her PEG tube feeding was weaned off and eventually discontinued secondary to marked improvement of the overall oral intake. The patient made a gradual improvement with weight from 117 pounds upon admission in skilled rehab to 133 pounds prior to discharge. During this rehab stay, the patient's daughter requested for psych evaluation secondary to depression noted. evaluated the patient and was told not recommendable to attend psych counseling secondary to impaired memory. The patient was noted to have short term memory. She was then recommended to continue medical therapy with SNRI. The patient is recommended to follow up with primary physician at [facility] for further adjustments of her current medications that were started from her recent hospitalization. She is also recommended to have a repeat CBC as outpatient. Labs on 12/18/2018, hemoglobin 7.5, hematocrit 23.8, WBC of 3, platelets 198. On 01/01/2019, WBC 6.1, hemoglobin 8.2, hematocrit 24.7, platelets 330. On 12/18/2018, sodium 137, potassium 4.0, chloride 106, BUN 12, creatinine , estimated GFR 83, glucose 170, calcium 8.4. VITAL SIGNS: Prior to discharge: Blood pressure 137/64, temp 99.4, pulse 72, respirations 18, O2 saturation 100% on room air. Weight 133 pounds, height 5 feet 2 inches. TIME SPENT: Time spent on this discharge, 35 minutes, in examining the patient, counseling and coordinating care. Job ID: [id number]
== END 2019-01-08 09:10 | disposition home or self-care (01) | DRG 948 ==
LOC: MADMS 15:00 → UNDOADMIN 15:00
PROVIDERS: ADMIT Family Medicine; ATTEND Family Medicine
DX: R53.1 Weakness (principal); E87.1 Hypo-osmolality and hyponatremia; K21.9 Gastro-esophageal reflux disease without esophagitis; E78.5 Hyperlipidemia, unspecified; F32.9 Major depressive disorder, single episode, unspecified; N18.3 Chronic kidney disease, stage 3 (moderate); I12.9 Hypertensive chronic kidney disease with stage 1 through stage 4 chronic kidney disease, or unspecified chronic kidney disease; R53.81 Other malaise; R62.7 Adult failure to thrive; E53.8 Deficiency of other specified B group vitamins; F41.9 Anxiety disorder, unspecified; K11.8 Other diseases of salivary glands; R13.10 Dysphagia, unspecified; Z90.49 Acquired absence of other specified parts of digestive tract; Z90.710 Acquired absence of both cervix and uterus; Z88.2 Allergy status to sulfonamides; Z88.8 Allergy status to other drugs, medicaments and biological substances; Z79.899 Other long term (current) drug therapy; Z68.24 Body mass index [BMI] 24.0-24.9, adult
CPT/HCPCS: 80048; 85014; 85018; 85025; 85049; S0179

== ENCOUNTER 2019-04-17 17:48 | Emergency (ER) | payer MEDICARE | END 2019-04-17 18:20 | disposition home or self-care (01) | LOC: MADERS 17:48 | DX: Z48.01 Encounter for change or removal of surgical wound dressing (principal) | CPT/HCPCS: 99283 ==

== ENCOUNTER 2023-11-02 09:27 | Inpatient (IN) | payer MEDICARE ==
[2023-11-02 10:58] LABS: Bilirubin Negative (Negative); Blood, Urine Trace (Negative); Glucose, Urine (Dipstick) Negative (Negative); Ketone, Urine Negative (Negative); Leukocyte Large (Negative); Nitrite Positive (Negative); Protein, Urine (Dipstick) Negative (Neg-Trace); Urobilinogen 0.2 mg/dL (Less than 2); pH, Urine 5.5 (5.0-9.0)
[2023-11-02 11:07] LABS: Clarity Hazy (Clear)
[2023-11-02 11:08] LABS: Bacteria/HPF 2+ HPF (None Seen); CAUTI Indications for Culture Alt mental st,lethar; RBC/HPF 0-3 HPF (0-3); Squamous Epithelial 0-3 HPF (0-3)
[2023-11-02 11:09] LABS: Urine Culture Reflex Yes Yes
[2023-11-02 11:12] LABS: #Basophils 0.2 thou/uL (0.0-0.2); #Eosinphils 0.2 thou/uL (0.0-0.7); #Lymphocytes 2.2 thou/uL (1.20-3.40); #Monocytes 0.6 thou/uL (0.11-0.59); #Neutrophils 4.9 thou/uL (1.40-6.50); %Basophils 2.1 % (0.0-1.0); %Eosinophils 2.9 % (0.0-10.0); %Lymphocytes 27.1 % (21.0-51.0); %Monocytes 7.6 % (0.0-10.0); %Neutrophils 60.3 % (42.0-75.0); Hematocrit 47.4 % (36.0-47.0); Hemoglobin 14.7 g/dL (12.0-16.0); Mean Corpuscular HGB CONC 30.9 g/dL (32.0-36.0); Mean Corpuscular Hemoglobin 27.5 pg (27.0-31.0); Platelet Count 225 10x3/uL (130-400); RBC Distribution Width 12.1 % (11.5-14.5); Red Blood Cell (RBC) Count 5.33 mill/uL (4.20-5.40); White Blood Cell (WBC) Count 8.1 10x3/uL (4.8-10.8)
[2023-11-02 11:14] LABS: ALT (SGPT) 13 U/L (8-55); AST (SGOT) 18 U/L (5-34); Albumin 4.8 g/dL (3.4-4.8); Alkaline Phosphatase 84 U/L (40-110); Anion Gap 17 mmol/L (10-20); BUN (Urea Nitrogen) 13 mg/dL (9.8-20.1); Bilirubin, Total 0.5 mg/dL (0.2-1.2); CK (CPK) 64 U/L (29-168); Calc. Creatinine Clearance 0 mL/min (70-130); Calcium 9.6 mg/dL (7.8-10.44); Carbon Dioxide 21 mmol/L (23-31); Chloride 105 mmol/L (98-107); Estimated GFR 78; Globulin 2.7 g/dL (2.4-3.5); Glucose 96 mg/dL (83-110); Lipase 20 U/L (8-78); Magnesium 1.9 mg/dL (1.6-2.6); Potassium 4.1 mmol/L (3.5-5.1); Protein, Total 7.5 g/dL (5.8-8.1); Sodium 139 mmol/L (136-145)
[2023-11-02 11:15] LABS: Troponin I Less than 0.010 ng/mL (< 0.028)
[2023-11-02] MEDS: Sodium Chloride 0.9% 1,000 ML IV SCH (14:43)
[2023-11-02] MEDS: cefTRIAXone (ROCEPHIN) 2 GM VIAL ONE (14:44)
[2023-11-02] MEDS: Sodium Chloride 0.9% 1,000 ML ONE (14:45)
[2023-11-02] MEDS: Sodium Chloride 0.9% 100 ML ONE (14:45)
[2023-11-02] MEDS ORDERED: Bisacodyl 5 MG TAB PO PRN (14:51)
[2023-11-02 15:29] VITALS: BMI 24.3
[2023-11-02] MEDS: Acetaminophen 325 MG TAB PO PRN (16:38)
[2023-11-02] MEDS: Latanoprost 0.005% Ophth Soln 2.5 ml Bottle EA EYE SCH (20:56)
[2023-11-02] MEDS: Mirtazapine 15 MG TAB PO SCH (20:57)
[2023-11-02] MEDS: Meloxicam 7.5 MG TAB PO SCH (20:57)
[2023-11-03] MEDS: Saccharomyces boulardii 250 MG CAP PO SCH (08:34)
[2023-11-03 09:21] VITALS: BMI 24.3
[2023-11-03] MEDS: cefTRIAXone\\ROCEPHIN 2 GM in Sodium Chloride 0.9% 100 ML IVPB SCH (11:11)
[2023-11-03] MEDS: Senokot S 8.6-50 MG TAB PO PRN (13:40)
[2023-11-04] MEDS: Pantoprazole DR 40 MG TAB PO SCH (08:15)
[2023-11-04] MEDS: Enoxaparin 40 MG (0.4 mL) SYRINGE SC SCH (08:17)
[2023-11-05 07:14] VITALS: BP 174/74; TEMP 97.6
[2023-11-05] MEDS: Acetaminophen 500 MG TAB PO SCH (08:04)
[2023-11-05] MEDS: Amlodipine 5 MG TAB PO SCH (08:05)
[2023-11-05] MEDS ORDERED: Diclofenac 1% 50 GM TOPICAL GEL TP SCH (09:00)
== END 2023-11-05 11:36 | disposition swing bed (61) | DRG 690 ==
LOC: MADERS 09:27 → MADMS 13:51
PROVIDERS: ADMIT Family Medicine; ATTEND Family Medicine
DX: N39.0 Urinary tract infection, site not specified (principal); M25.562 Pain in left knee; K21.9 Gastro-esophageal reflux disease without esophagitis; E78.5 Hyperlipidemia, unspecified; D50.9 Iron deficiency anemia, unspecified; F32.A Depression, unspecified; Z66 Do not resuscitate; R53.81 Other malaise; R63.0 Anorexia; Z68.24 Body mass index [BMI] 24.0-24.9, adult; Z88.2 Allergy status to sulfonamides; Z88.8 Allergy status to other drugs, medicaments and biological substances; Z79.899 Other long term (current) drug therapy; Z90.89 Acquired absence of other organs; Z90.710 Acquired absence of both cervix and uterus; Z90.49 Acquired absence of other specified parts of digestive tract; Z85.818 Personal history of malignant neoplasm of other sites of lip, oral cavity, and pharynx
CPT/HCPCS: 70450; 80053; 81001; 82550; 83690; 83735; 83880; 84484; 85025; 87077; 87086; 87186; 93005; 96361; 96365; J0696; J1650; J3490; J7050

== ENCOUNTER 2025-01-11 18:03 | Emergency (ER) | payer MEDICARE ==
[2025-01-11 18:56] LABS: #Basophils 0.1 thou/uL (0.0-0.2); #Eosinophils 0.2 thou/uL (0.0-0.7); #Lymphocytes 2.0 thou/uL (1.20-3.40); #Monocytes 0.4 thou/uL (0.11-0.59); #Neutrophils 3.5 thou/uL (1.40-6.50); %Basophils 2.3 % (0.0-1.0); %Eosinophils 2.6 % (0.0-10.0); %Lymphocytes 32.8 % (21.0-51.0); %Monocytes 6.7 % (0.0-10.0); %Neutrophils 55.6 % (42.0-75.0); Hematocrit 42.1 % (36.0-47.0); Hemoglobin 13.9 g/dL (12.0-16.0); Mean Corpuscular Hemoglobin 30.0 pg (27.0-31.0); Mean Corpuscular Volume 91.0 fl (78.0-98.0); Platelet Count 275 10x3/uL (130-400); Red Blood Cell (RBC) Count 4.63 mill/uL (4.20-5.40); White Blood Cell (WBC) Count 6.2 10x3/uL (4.8-10.8)
[2025-01-11 19:01] LABS: Glucose, Urine (Dipstick) Negative (Negative); Leukocyte Moderate (Negative); Protein, Urine (Dipstick) Negative (Neg-Trace); Specific Gravity, Urine 1.015 (1.005-1.030)
[2025-01-11 19:06] LABS: RBC/HPF 0-3 HPF (0-3)
[2025-01-11 19:07] LABS: Bacteria/HPF 1+ HPF (None Seen); CAUTI Indications for Culture Alt mental st,lethar; WBC/HPF Greater than 50 HPF (0-3)
[2025-01-11 19:08] LABS: Urine Culture Reflex Yes Yes
[2025-01-11 19:10] LABS: Anion Gap 21 mmol/L (10-20); BUN (Urea Nitrogen) 12 mg/dL (9.8-20.1); Calc. Creatinine Clearance 0 mL/min (70-130); Carbon Dioxide 17 mmol/L (23-31); Chloride 103 mmol/L (98-107); Potassium 5.0 mmol/L (3.5-5.1); Sodium 136 mmol/L (136-145)
[2025-01-11 19:11] LABS: ALT (SGPT) 15 U/L (Less than 34); AST (SGOT) 22 U/L (11-34); Albumin 4.6 g/dL (3.1-4.5); Alkaline Phosphatase 105 U/L (40-110); Bilirubin, Total 0.3 mg/dL (0.3-1.2); Calcium 9.5 mg/dL (7.8-10.44); Globulin 3.3 g/dL (2.4-3.5); Glucose 132 mg/dL (83-110); Magnesium 1.6 mg/dL (1.6-2.6)
== END 2025-01-11 19:47 | disposition home or self-care (01) ==
LOC: MADERS 18:03
DX: N39.0 Urinary tract infection, site not specified (principal); R41.0 Disorientation, unspecified; E87.20 Acidosis, unspecified; K21.9 Gastro-esophageal reflux disease without esophagitis; I10 Essential (primary) hypertension; F03.90 Unspecified dementia, unspecified severity, without behavioral disturbance, psychotic disturbance, mood disturbance, and anxiety; H40.9 Unspecified glaucoma; D09.9 Carcinoma in situ, unspecified
CPT/HCPCS: 36415; 80053; 81001; 83735; 84443; 85025; 87086; 99284

== ENCOUNTER 2025-01-18 11:02 | Emergency (ER) | payer MEDICARE ==
[2025-01-18 11:26] LABS: Glucose, Urine (Dipstick) Negative (Negative); Leukocyte Small (Negative); Protein, Urine (Dipstick) Negative (Neg-Trace); Specific Gravity, Urine 1.015 (1.005-1.030)
[2025-01-18 11:32] LABS: Bacteria/HPF Rare-Few HPF (None Seen); CAUTI Indications for Culture Alt mental st,lethar; RBC/HPF None Seen HPF (0-3); Urine Culture Reflex No No
== END 2025-01-18 12:13 ==
LOC: MADERS 11:02
DX: R44.3 Hallucinations, unspecified (principal); F03.90 Unspecified dementia, unspecified severity, without behavioral disturbance, psychotic disturbance, mood disturbance, and anxiety; I10 Essential (primary) hypertension
CPT/HCPCS: 81001; 99284

== ENCOUNTER 2025-02-10 12:05 | Emergency (ER) | payer MEDICARE ==
[2025-02-10 13:07] LABS: ALT (SGPT) 28 U/L (Less than 34); AST (SGOT) 36 U/L (11-34); Albumin 4.6 g/dL (3.1-4.5); Alkaline Phosphatase 80 U/L (40-110); Anion Gap 20 mmol/L (10-20); BUN (Urea Nitrogen) 19 mg/dL (9.8-20.1); Bilirubin, Total 0.5 mg/dL (0.3-1.2); Calc. Creatinine Clearance 0 mL/min (70-130); Calcium 9.1 mg/dL (7.8-10.44); Carbon Dioxide 16 mmol/L (23-31); Chloride 101 mmol/L (98-107); Globulin 3.3 g/dL (2.4-3.5); Glucose 96 mg/dL (83-110); Potassium 4.4 mmol/L (3.5-5.1); Sodium 133 mmol/L (136-145)
[2025-02-10 13:08] LABS: Hematocrit 44.0 % (36.0-47.0); Hemoglobin 14.0 g/dL (12.0-16.0); MDiff Complete? YES; Mean Corpuscular Hemoglobin 28.4 pg (27.0-31.0); Mean Corpuscular Volume 89.6 fl (78.0-98.0); Platelet Adequacy Comment Appears Adequate; Platelet Count 196 10x3/uL (130-400); Red Blood Cell (RBC) Count 4.91 mill/uL (4.20-5.40); White Blood Cell (WBC) Count 3.8 10x3/uL (4.8-10.8)
[2025-02-10 13:45] LABS: CAUTI Indications for Culture Alt mental st,lethar; Glucose, Urine (Dipstick) Negative (Negative); Leukocyte Negative (Negative); Protein, Urine (Dipstick) Negative (Neg-Trace); RBC/HPF 0-3 HPF (0-3); Specific Gravity, Urine 1.020 (1.005-1.030); WBC/HPF 0-3 HPF (0-3)
[2025-02-10 13:46] LABS: Bacteria/HPF Rare-Few HPF (None Seen); Urine Culture Reflex No No
== END 2025-02-10 14:38 | disposition home or self-care (01) ==
LOC: MADERS 12:05
DX: U07.1 COVID-19 (principal); M25.552 Pain in left hip; K21.9 Gastro-esophageal reflux disease without esophagitis; I10 Essential (primary) hypertension; Z79.899 Other long term (current) drug therapy
CPT/HCPCS: 36415; 71045; 80053; 81001; 85025